=== PATIENT | female | born 1970 | race African-American/Black ===

== ENCOUNTER 2021-08-27 01:58 | Inpatient (IN) | payer OTHER, MEDICAID ==
[~2021-08-27] VITALS: Ht 175.3 cm; Wt 121.7 kg
[2021-08-27] VITALS (33 sets, daily range): BP systolic 107–164; BP diastolic 50–89
[2021-08-27] MEDS ORDERED: MORPHINE SULFATE 4 MG/ML CPJ (NOT FOR IM USE) IV STA (02:30)
[2021-08-27] MEDS ORDERED: LABETALOL HCL VIAL 20 MG/4 ML VIAL IV ONE (02:30)
[2021-08-27] MEDS ORDERED: ONDANSETRON HCL 4MG/2ML INJ IV STA (02:30)
[2021-08-27 03:08] LABS: BASOPHILS % 0.8 % (0.0-2.0); EOSINOPHILS % 0.9 % (0.0-5.0); HEMATOCRIT. 33.8 % (36.0-48.0); HEMOGLOBIN. 10.9 g/dL (12.0-16.0); LYMPHOCYTES % 28.5 % (20.0-50.0); MEAN CORPUSCULAR HEMOGLOBIN 31.8 pg (28.0-32.0); MEAN CORPUSCULAR VOLUME 98.6 fL (81.0-99.0); MEAN PLATELET VOLUME 9.7 fl (7.4-10.4); MONOCYTES % 7.5 % (2.0-8.0); NEUTROPHILS % 62.3 % (40.0-76.0); PLATELET 255 x1000/uL (130-400); RED BLOOD CELL COUNT 3.43 mill/uL (4.2-5.4); RED CELL DISTRIBUTION WIDTH 17.8 % (11.6-14.6)
[2021-08-27 03:18] LABS: BG BASE EXCESS -9.3 mmol/L (-2.0-2.0); BG CARBOXYHEMOGLOBIN 0.3 % (0.5-1.5); BG DEOXYHEMOGLOBIN 8.3 % (0.0-5.0); BG FRACTION INSPIRED OXYGEN 100; BG HCO3 ACT 18.5 mmol/L (22.0-26.0); BG METHEMOGLOBIN 0.3 % (0.0-1.5); BG OXYGEN SATURATION 91.6 % (92.0-98.5); BG OXYHEMOGLOBIN 91.1 % (94.0-97.0); BG PCO2 47.9 mmHg (35.0-45.0); BG PH 7.204 (7.350-7.450); BG PO2 76.3 mmHg (75.0-100.0); BG SAMPLE SITE RIGHT RADIAL; BG TOTAL HEMOGLOBIN 11.2 g/dL (12.0-18.0); BG VENT MODE VENT - AC
[2021-08-27] MEDS ORDERED: VANCOMYCIN 1G PREMIX 200 ML IV ONE (03:30)
[2021-08-27] MEDS ORDERED: PIPERACILLIN/TAZ 3.375G PREMIX 50 ML IV ONE (03:30)
[2021-08-27] MEDS ORDERED: MIDAZOLAM HCL 50 MG in DEXTROSE 5% WATER 40 ML IV ONE (03:45)
[2021-08-27] MEDS ORDERED: PROPOFOL 10MG/ML 100ML 100 ML IV ONE (03:45)
[2021-08-27 03:54] LABS: CHLORIDE 105 mEq/L (98-107)
[2021-08-27] MEDS ORDERED: MIDAZOLAM HCL 100 MG in SODIUM CHLORIDE 0.9% 100 ML IV PRN (04:00)
[2021-08-27] MEDS: MIDAZOLAM HCL 100 MG in SODIUM CHLORIDE 0.9% 100 ML IV NR ×2 (04:45→12:39)
[2021-08-27] MEDS ORDERED: VANCOMYCIN 1G PREMIX 200 ML IV NR (05:30)
[2021-08-27] MEDS ORDERED: VANCOMYCIN 1,000 MG in DEXT 5% WATER 250 ML IV NR (05:30)
[2021-08-27] MEDS ORDERED: IPRATROPIUM/ALBUTEROL 0.5-3(2.5)MG/3ML NEB NEB PRN (07:00)
[2021-08-27] MEDS ORDERED: MAGNESIUM/ALUMINUM HYDROXIDE/SIMETHICONE 30ML UDC PO PRN (07:00)
[2021-08-27] MEDS ORDERED: DOCUSATE SODIUM 100MG CAPSULE PO PRN (07:00)
[2021-08-27] MEDS ORDERED: GUAIFENESIN 200MG/10ML SUGAR FREE UDC PO PRN (07:00)
[2021-08-27] MEDS ORDERED: ONDANSETRON HCL 4MG/2ML INJ IV PRN (07:00)
[2021-08-27] MEDS ORDERED: PIPERACILLIN/TAZ 3.375G PREMIX 50 ML IV SCH (07:00)
[2021-08-27] MEDS ORDERED: ACETAMINOPHEN 325MG TABLET PO PRN (07:00)
[2021-08-27] MEDS ORDERED: NOREPINEPHRINE 8 MG in DEXT 5% WATER 242 ML IV PRN (07:00)
[2021-08-27] MEDS ORDERED: NITROGLYCERIN 0.4MG TABLET SL SL PRN (07:00)
[2021-08-27] MEDS ORDERED: DEXTROSE 50% WATER 50ML SYRINGE IV PRN (07:15)
[2021-08-27] MEDS ORDERED: NOREPINEPHRINE 8MG/250ML PMX 250 ML IV PRN (07:30)
[2021-08-27] MEDS: BLOOD SUGAR DIAGNOSTIC STRIP TEST SCH ×3 (09:00→20:43)
[2021-08-27] MEDS ORDERED: ENOXAPARIN 30MG/0.3ML SYR SUBCUT SCH (09:15)
[2021-08-27 09:40] LABS: T4 FREE 1.12 ng/dL (0.76-1.46)
[2021-08-27] MEDS ORDERED: FENTANYL 2500MCG/250ML PMX 250 ML IV PRN (09:45)
[2021-08-27] MEDS: IPRATROPIUM/ALBUTEROL 0.5-3(2.5)MG/3ML NEB NEB SCH ×2 (12:22→21:08)
[2021-08-27 12:35] LABS: HEPATITIS B SURFACE ANTIGEN NEGATIVE
[2021-08-27] MEDS: PROPOFOL 10MG/ML 100ML 100 ML IV PRN ×2 (12:39→15:42)
[2021-08-27] MEDS ORDERED: ENOXAPARIN 40MG/0.4ML SYR SUBCUT SCH (15:00)
[2021-08-27] MEDS ORDERED: TRAM50TA3 PO (16:12)
[2021-08-27] MEDS ORDERED: MONT10TA32 PO (16:14)
[2021-08-27] MEDS ORDERED: CYCL10TA7 PO (16:17)
[2021-08-27] MEDS ORDERED: GABA-529 PO (16:17)
[2021-08-27] MEDS ORDERED: PRED5TAB PO (16:17)
[2021-08-27] MEDS ORDERED: SERT25TA74 PO (16:17)
[2021-08-27] MEDS ORDERED: CARV12.545 PO (16:18)
[2021-08-27] MEDS ORDERED: OMEP20TA2 PO (16:20)
[2021-08-27] MEDS ORDERED: ATOR-2 PO (16:21)
[2021-08-27] MEDS ORDERED: REN800 PO (16:22)
[2021-08-27] MEDS ORDERED: FURO40TA5 PO (16:22)
[2021-08-27] MEDS ORDERED: MECL-217 PO (16:23)
[2021-08-27] MEDS ORDERED: LOSA100T32 PO (16:24)
[2021-08-27] MEDS ORDERED: AMLO10TA4 PO (16:26)
[2021-08-27] MEDS: ASPIRIN 325MG EC TABLET PO SCH (16:40)
[2021-08-27] MEDS: PANTOPRAZOLE SODIUM 40 MG/VIAL IV SCH (16:40)
[2021-08-27] MEDS: INSULIN LISPRO 100 UNITS/ML SUBCUT SCH ×3 (16:42→20:55)
[2021-08-27] MEDS: ENOXAPARIN 120MG/0.8ML SYR SUBCUT SCH (16:49)
[2021-08-27 17:26] LABS: FOLIC ACID (FOLATE) SERUM 16.5 ng/mL (>5.38)
[2021-08-27] MEDS: FENTANYL 2500MCG/250ML PMX 250 ML IV PRN (17:54)
[2021-08-27] MEDS ORDERED: NOREPINEPHRINE 8 MG in DEXT 5% WATER 250 ML IV PRN (19:30)
[2021-08-27 20:27] LABS: INR 1.2; PROTHROMBIN TIME 12.3 sec (9.6-11.0)
[2021-08-27 20:35] LABS: CREATINE KINASE MB FRACTION 2.9 ng/mL (0.5-3.6)
[2021-08-27] MEDS ORDERED: PIPERACILLIN/TAZOBACTAM 3.375 G in DEXTROSE 5% WATER 50 ML IV SCH (21:00)
[2021-08-27] MEDS: PIPERACILLIN/TAZOBACTAM 3.375 G in DEXTROSE 5% WATER 50 ML IV SCH (22:12)
[2021-08-27 22:44] LABS: *AMPHETAMINES SCREEN URINE NEGATIVE (NEGATIVE); *BARBITURATES SCREEN URINE NEGATIVE (NEGATIVE); *COCAINE SCREEN URINE NEGATIVE (NEGATIVE); CANNABINOID URINE SCREEN NEGATIVE (NEGATIVE); METHADONE URINE SCREEN NEGATIVE (NEGATIVE); PHENCYCLIDINE URINE SCREEN NEGATIVE (NEGATIVE)
[2021-08-27 23:02] LABS: *BENZODIAZEPINES SCREEN URINE PRESUMTIVE POSITIVE (NEGATIVE); OPIATES URINE SCREEN PRESUMTIVE POSITIVE (NEGATIVE)
[2021-08-28] VITALS (62 sets, daily range): BP systolic 95–152; BP diastolic 46–110
[2021-08-28 00:16] LABS: CREATINE KINASE MB FRACTION 2.5 ng/mL (0.5-3.6)
[2021-08-28] MEDS: IPRATROPIUM/ALBUTEROL 0.5-3(2.5)MG/3ML NEB NEB SCH ×4 (00:58→20:22)
[2021-08-28] MEDS: MIDAZOLAM HCL 100 MG in SODIUM CHLORIDE 0.9% 100 ML IV NR (01:50)
[2021-08-28] MEDS: ACETAMINOPHEN 325MG TABLET PO PRN ×2 (04:28→20:21)
[2021-08-28] MEDS: BLOOD SUGAR DIAGNOSTIC STRIP TEST SCH ×3 (06:08→17:04)
[2021-08-28] MEDS: INSULIN LISPRO 100 UNITS/ML SUBCUT SCH ×3 (06:09→17:36)
[2021-08-28 06:28] LABS: BASOPHILS % 0.4 % (0.0-2.0); EOSINOPHILS % 3.5 % (0.0-5.0); HEMATOCRIT. 26.4 % (36.0-48.0); HEMOGLOBIN. 8.7 g/dL (12.0-16.0); LYMPHOCYTES % 11.4 % (20.0-50.0); MEAN CORPUSCULAR HEMOGLOBIN 32.6 pg (28.0-32.0); MEAN CORPUSCULAR VOLUME 99.3 fL (81.0-99.0); MEAN PLATELET VOLUME 10.2 fl (7.4-10.4); MONOCYTES % 4.5 % (2.0-8.0); NEUTROPHILS % 80.2 % (40.0-76.0); PLATELET 98 x1000/uL (130-400); RED BLOOD CELL COUNT 2.66 mill/uL (4.2-5.4); RED CELL DISTRIBUTION WIDTH 17.8 % (11.6-14.6)
[2021-08-28 06:31] LABS: CHLORIDE 110 mEq/L (98-107)
[2021-08-28 06:43] LABS: PHOSPHORUS 2.7 mg/dL (2.5-4.9)
[2021-08-28 08:20] LABS: BG BASE EXCESS 0.5 mmol/L (-2.0-2.0); BG CARBOXYHEMOGLOBIN 0.3 % (0.5-1.5); BG DEOXYHEMOGLOBIN 4.4 % (0.0-5.0); BG METHEMOGLOBIN 0.2 % (0.0-1.5); BG OXYGEN SATURATION 95.6 % (92.0-98.5); BG OXYHEMOGLOBIN 95.1 % (94.0-97.0); BG PCO2 39.5 mmHg (35.0-45.0); BG PH 7.419 (7.350-7.450); BG PO2 81.2 mmHg (75.0-100.0); BG SAMPLE SITE RIGHT RADIAL; BG VENT MODE VENT - AC
[2021-08-28] MEDS ORDERED: MIDAZOLAM 100MG/100ML PMX 100 ML IV PRN (10:00)
[2021-08-28] MEDS: ASPIRIN 325MG EC TABLET PO SCH (10:47)
[2021-08-28] MEDS: PANTOPRAZOLE SODIUM 40 MG/VIAL IV SCH (10:47)
[2021-08-28] MEDS: PIPERACILLIN/TAZOBACTAM 3.375 G in DEXTROSE 5% WATER 50 ML IV SCH ×2 (10:47→20:20)
[2021-08-28] MEDS: MIDAZOLAM HCL 100 MG in SODIUM CHLORIDE 0.9% 80 ML IV PRN (13:21)
[2021-08-28] MEDS: FENTANYL 2500MCG/250ML PMX 250 ML IV PRN (16:27)
[2021-08-28] MEDS: ENOXAPARIN 120MG/0.8ML SYR SUBCUT SCH (16:44)
[2021-08-28] MEDS ORDERED: VANCOMYCIN 1250MG in DEXTROSE 5% WATER 250ML IV NR (18:00)
[2021-08-28] MEDS ORDERED: IOHEXOL-350 100 ML BOTTLE ONE (19:14)
[2021-08-29] VITALS (34 sets, daily range): BP systolic 104–154; BP diastolic 57–74
[2021-08-29] MEDS: IPRATROPIUM/ALBUTEROL 0.5-3(2.5)MG/3ML NEB NEB SCH ×4 (00:22→20:35)
[2021-08-29] MEDS: ACETAMINOPHEN 325MG TABLET PO PRN ×2 (04:01→21:09)
[2021-08-29] MEDS: FENTANYL 2500MCG/250ML PMX 250 ML IV PRN (05:25)
[2021-08-29] MEDS: BLOOD SUGAR DIAGNOSTIC STRIP TEST SCH ×4 (05:33→18:53)
[2021-08-29] MEDS: INSULIN LISPRO 100 UNITS/ML SUBCUT SCH ×4 (05:34→18:00)
[2021-08-29 06:27] LABS: BASOPHILS % 0.4 % (0.0-2.0); EOSINOPHILS % 0.4 % (0.0-5.0); HEMOGLOBIN. 8.5 g/dL (12.0-16.0); LYMPHOCYTES % 16.9 % (20.0-50.0); MEAN CORPUSCULAR HEMOGLOBIN 32.4 pg (28.0-32.0); MEAN CORPUSCULAR VOLUME 99.4 fL (81.0-99.0); MEAN PLATELET VOLUME 10.2 fl (7.4-10.4); MONOCYTES % 9.4 % (2.0-8.0); NEUTROPHILS % 72.9 % (40.0-76.0); PLATELET 150 x1000/uL (130-400); RED BLOOD CELL COUNT 2.62 mill/uL (4.2-5.4); RED CELL DISTRIBUTION WIDTH 17.6 % (11.6-14.6)
[2021-08-29] MEDS: ASPIRIN 325MG EC TABLET PO SCH (08:56)
[2021-08-29] MEDS: PANTOPRAZOLE SODIUM 40 MG/VIAL IV SCH (08:56)
[2021-08-29] MEDS: PIPERACILLIN/TAZOBACTAM 3.375 G in DEXTROSE 5% WATER 50 ML IV SCH ×2 (08:57→21:09)
[2021-08-29 09:21] LABS: BG BASE EXCESS -2.2 mmol/L (-2.0-2.0); BG CARBOXYHEMOGLOBIN 0.2 % (0.5-1.5); BG DEOXYHEMOGLOBIN 4.7 % (0.0-5.0); BG FRACTION INSPIRED OXYGEN 60; BG HCO3 ACT 22.3 mmol/L (22.0-26.0); BG METHEMOGLOBIN 0.3 % (0.0-1.5); BG OXYGEN SATURATION 95.3 % (92.0-98.5); BG OXYHEMOGLOBIN 94.8 % (94.0-97.0); BG PCO2 36.9 mmHg (35.0-45.0); BG PO2 80.6 mmHg (75.0-100.0); BG SAMPLE SITE RIGHT RADIAL; BG TOTAL HEMOGLOBIN 8.7 g/dL (12.0-18.0); BG VENT MODE VENT - AC
[2021-08-29] MEDS: ENOXAPARIN 120MG/0.8ML SYR SUBCUT SCH (16:59)
[2021-08-30] VITALS (79 sets, daily range): BP systolic 96–166; BP diastolic 46–94
[2021-08-30] MEDS: IPRATROPIUM/ALBUTEROL 0.5-3(2.5)MG/3ML NEB NEB SCH ×4 (00:22→20:43)
[2021-08-30] MEDS: BLOOD SUGAR DIAGNOSTIC STRIP TEST SCH ×4 (00:30→17:28)
[2021-08-30] MEDS: INSULIN LISPRO 100 UNITS/ML SUBCUT SCH ×4 (00:30→17:28)
[2021-08-30] MEDS: MIDAZOLAM HCL 100 MG in SODIUM CHLORIDE 0.9% 80 ML IV PRN ×3 (02:42→21:48)
[2021-08-30 05:20] LABS: BASOPHILS % 0.3 % (0.0-2.0); EOSINOPHILS % 1.6 % (0.0-5.0); HEMATOCRIT. 23.9 % (36.0-48.0); HEMOGLOBIN. 7.9 g/dL (12.0-16.0); LYMPHOCYTES % 8.8 % (20.0-50.0); MEAN CORPUSCULAR HEMOGLOBIN 32.4 pg (28.0-32.0); MEAN CORPUSCULAR VOLUME 97.7 fL (81.0-99.0); MEAN PLATELET VOLUME 10.1 fl (7.4-10.4); MONOCYTES % 8.3 % (2.0-8.0); PLATELET 147 x1000/uL (130-400); RED BLOOD CELL COUNT 2.44 mill/uL (4.2-5.4); RED CELL DISTRIBUTION WIDTH 17.2 % (11.6-14.6)
[2021-08-30] MEDS: ACETAMINOPHEN 325MG TABLET PO PRN ×3 (05:32→18:10)
[2021-08-30 07:34] LABS: BG BASE EXCESS -0.1 mmol/L (-2.0-2.0); BG CARBOXYHEMOGLOBIN 0.4 % (0.5-1.5); BG DEOXYHEMOGLOBIN 2.7 % (0.0-5.0); BG HCO3 ACT 25.4 mmol/L (22.0-26.0); BG METHEMOGLOBIN 0.1 % (0.0-1.5); BG OXYGEN SATURATION 97.3 % (92.0-98.5); BG OXYHEMOGLOBIN 96.8 % (94.0-97.0); BG PCO2 46.2 mmHg (35.0-45.0); BG PH 7.358 (7.350-7.450); BG PO2 103.4 mmHg (75.0-100.0); BG SAMPLE SITE RIGHT BRACHIAL; BG VENT MODE VENT - AC
[2021-08-30] MEDS: ASPIRIN 325MG EC TABLET PO SCH (08:42)
[2021-08-30] MEDS: PANTOPRAZOLE SODIUM 40 MG/VIAL IV SCH (08:42)
[2021-08-30] MEDS: FENTANYL 2500MCG/250ML PMX 250 ML IV PRN (08:44)
[2021-08-30] MEDS: PIPERACILLIN/TAZOBACTAM 3.375 G in DEXTROSE 5% WATER 50 ML IV SCH ×2 (10:45→21:20)
[2021-08-30] MEDS: ENOXAPARIN 120MG/0.8ML SYR SUBCUT SCH (15:17)
[2021-08-30] MEDS ORDERED: VANCOMYCIN 750 MG in DEXT 5% WATER 250 ML IV NR (21:00)
[2021-08-30] MEDS ORDERED: DOXYCYCLINE HYCLATE 100MG CAPSULE PO NR (21:00)
[2021-08-31] VITALS (96 sets, daily range): BP systolic 96–164; BP diastolic 41–92
[2021-08-31] MEDS: BLOOD SUGAR DIAGNOSTIC STRIP TEST SCH ×4 (00:01→17:57)
[2021-08-31] MEDS: INSULIN LISPRO 100 UNITS/ML SUBCUT SCH ×4 (00:05→18:00)
[2021-08-31] MEDS: IPRATROPIUM/ALBUTEROL 0.5-3(2.5)MG/3ML NEB NEB SCH ×4 (01:05→21:01)
[2021-08-31] MEDS: ACETAMINOPHEN 325MG TABLET PO PRN ×3 (01:06→20:50)
[2021-08-31] MEDS: FENTANYL 2500MCG/250ML PMX 250 ML IV PRN (05:35)
[2021-08-31 05:39] LABS: BASOPHILS % 0.5 % (0.0-2.0); EOSINOPHILS % 1.7 % (0.0-5.0); HEMATOCRIT. 21.6 % (36.0-48.0); HEMOGLOBIN. 7.2 g/dL (12.0-16.0); LYMPHOCYTES % 13.3 % (20.0-50.0); MEAN CORPUSCULAR HEMOGLOBIN 32.3 pg (28.0-32.0); MEAN CORPUSCULAR VOLUME 96.2 fL (81.0-99.0); MONOCYTES % 10.2 % (2.0-8.0); NEUTROPHILS % 74.3 % (40.0-76.0); RED BLOOD CELL COUNT 2.24 mill/uL (4.2-5.4); RED CELL DISTRIBUTION WIDTH 16.6 % (11.6-14.6)
[2021-08-31] MEDS: PIPERACILLIN/TAZOBACTAM 3.375 G in DEXTROSE 5% WATER 50 ML IV SCH (08:28)
[2021-08-31] MEDS: PANTOPRAZOLE SODIUM 40 MG/VIAL IV SCH (08:32)
[2021-08-31] MEDS: ASPIRIN 325MG EC TABLET PO SCH (08:34)
[2021-08-31] MEDS: DOXYCYCLINE HYCLATE 100MG CAPSULE PO SCH ×2 (08:34→20:52)
[2021-08-31 09:06] LABS: BG BASE EXCESS 0.9 mmol/L (-2.0-2.0); BG CARBOXYHEMOGLOBIN 0.3 % (0.5-1.5); BG DEOXYHEMOGLOBIN 3.8 % (0.0-5.0); BG FRACTION INSPIRED OXYGEN 50; BG HCO3 ACT 25.6 mmol/L (22.0-26.0); BG METHEMOGLOBIN 0.2 % (0.0-1.5); BG OXYGEN SATURATION 96.2 % (92.0-98.5); BG OXYHEMOGLOBIN 95.7 % (94.0-97.0); BG PCO2 41.2 mmHg (35.0-45.0); BG PH 7.411 (7.350-7.450); BG PO2 89.8 mmHg (75.0-100.0); BG SAMPLE SITE RIGHT RADIAL; BG TOTAL HEMOGLOBIN 7.9 g/dL (12.0-18.0); BG VENT MODE VENT - AC
[2021-08-31] MEDS: ENOXAPARIN 120MG/0.8ML SYR SUBCUT SCH (15:53)
[2021-08-31] MEDS: CEFEPIME 1,000 MG in DEXTROSE 5% WATER 50 ML IV SCH (17:32)
[2021-08-31] MEDS: METRONIDAZOLE 250MG TABLET PO SCH ×2 (17:32→23:00)
[2021-08-31] MEDS ORDERED: EPOETIN ALFA 10000UNITS/ML VIAL SUBCUT SCH (21:00)
[2021-09-01] VITALS (79 sets, daily range): BP systolic 110–173; BP diastolic 55–91
[2021-09-01] MEDS: BLOOD SUGAR DIAGNOSTIC STRIP TEST SCH ×5 (00:46→23:27)
[2021-09-01] MEDS: INSULIN LISPRO 100 UNITS/ML SUBCUT SCH ×5 (00:51→23:30)
[2021-09-01] MEDS: IPRATROPIUM/ALBUTEROL 0.5-3(2.5)MG/3ML NEB NEB SCH ×4 (00:57→20:46)
[2021-09-01] MEDS: FENTANYL 2500MCG/250ML PMX 250 ML IV PRN (02:56)
[2021-09-01] MEDS: ACETAMINOPHEN 325MG TABLET PO PRN (04:53)
[2021-09-01] MEDS: METRONIDAZOLE 250MG TABLET PO SCH ×3 (05:11→23:24)
[2021-09-01 06:15] LABS: BASOPHILS % 0.5 % (0.0-2.0); EOSINOPHILS % 2.9 % (0.0-5.0); HEMATOCRIT. 28.5 % (36.0-48.0); HEMOGLOBIN. 9.2 g/dL (12.0-16.0); LYMPHOCYTES % 12.3 % (20.0-50.0); MEAN CORPUSCULAR HEMOGLOBIN 31.9 pg (28.0-32.0); MEAN CORPUSCULAR VOLUME 99.3 fL (81.0-99.0); MEAN PLATELET VOLUME 10.3 fl (7.4-10.4); MONOCYTES % 8.9 % (2.0-8.0); NEUTROPHILS % 75.4 % (40.0-76.0); PLATELET 183 x1000/uL (130-400); RED BLOOD CELL COUNT 2.87 mill/uL (4.2-5.4); RED CELL DISTRIBUTION WIDTH 17.9 % (11.6-14.6)
[2021-09-01] MEDS: ACETAMINOPHEN 650MG/20.3ML UDC PO PRN ×3 (07:44→20:44)
[2021-09-01] MEDS: MIDAZOLAM HCL 100 MG in SODIUM CHLORIDE 0.9% 80 ML IV PRN (08:04)
[2021-09-01] MEDS: PANTOPRAZOLE SODIUM 40 MG/VIAL IV SCH (10:41)
[2021-09-01] MEDS: ASPIRIN 325MG EC TABLET PO SCH (10:41)
[2021-09-01] MEDS: DOXYCYCLINE HYCLATE 100MG CAPSULE PO SCH ×2 (10:42→20:44)
[2021-09-01] MEDS: CLONIDINE 0.1MG TABLET PO PRN ×3 (10:47→20:44)
[2021-09-01] MEDS ORDERED: FLUMAZENIL 0.1 MG/ML 5ML VIAL IV NR (12:00)
[2021-09-01 12:32] LABS: BG BASE EXCESS 4.7 mmol/L (-2.0-2.0); BG CARBOXYHEMOGLOBIN 0.1 % (0.5-1.5); BG FRACTION INSPIRED OXYGEN 50; BG HCO3 ACT 29.6 mmol/L (22.0-26.0); BG METHEMOGLOBIN 0.3 % (0.0-1.5); BG OXYHEMOGLOBIN 94.6 % (94.0-97.0); BG PCO2 45.6 mmHg (35.0-45.0); BG SAMPLE SITE RIGHT RADIAL; BG TOTAL HEMOGLOBIN 8.5 g/dL (12.0-18.0); BG VENT MODE VENT - CPAP
[2021-09-01] MEDS ORDERED: MORPHINE SULFATE 2 MG/ML CPJ (NOT FOR IM USE) IV NR (15:00)
[2021-09-01] MEDS: CEFEPIME 1,000 MG in DEXTROSE 5% WATER 50 ML IV SCH (17:24)
[2021-09-01] MEDS: ENOXAPARIN 120MG/0.8ML SYR SUBCUT SCH (17:25)
[2021-09-01] MEDS ORDERED: DOCUSATE SODIUM SUGAR FREE 100MG/10ML UDC PO PRN (20:45)
[2021-09-02] VITALS (66 sets, daily range): BP systolic 111–187; BP diastolic 55–120
[2021-09-02] MEDS: IPRATROPIUM/ALBUTEROL 0.5-3(2.5)MG/3ML NEB NEB SCH ×4 (02:11→20:18)
[2021-09-02] MEDS: METRONIDAZOLE 250MG TABLET PO SCH ×3 (05:17→21:11)
[2021-09-02] MEDS: INSULIN LISPRO 100 UNITS/ML SUBCUT SCH ×3 (05:18→17:36)
[2021-09-02] MEDS: CLONIDINE 0.1MG TABLET PO PRN ×2 (05:18→10:49)
[2021-09-02] MEDS: BLOOD SUGAR DIAGNOSTIC STRIP TEST SCH ×3 (05:19→17:33)
[2021-09-02 05:30] LABS: BASOPHILS % 0.5 % (0.0-2.0); EOSINOPHILS % 1.8 % (0.0-5.0); HEMATOCRIT. 24.3 % (36.0-48.0); LYMPHOCYTES % 7.5 % (20.0-50.0); MEAN CORPUSCULAR HEMOGLOBIN 31.6 pg (28.0-32.0); MEAN CORPUSCULAR VOLUME 95.9 fL (81.0-99.0); MEAN PLATELET VOLUME 10.4 fl (7.4-10.4); MONOCYTES % 8.3 % (2.0-8.0); NEUTROPHILS % 81.9 % (40.0-76.0); PLATELET 200 x1000/uL (130-400); RED BLOOD CELL COUNT 2.54 mill/uL (4.2-5.4); RED CELL DISTRIBUTION WIDTH 17.2 % (11.6-14.6)
[2021-09-02 06:00] LABS: CHLORIDE 111 mEq/L (98-107); CREATINE KINASE 772 IU/L (26-192); PHOSPHORUS 1.8 mg/dL (2.5-4.9)
[2021-09-02] MEDS: ACETAMINOPHEN 650MG/20.3ML UDC PO PRN (07:31)
[2021-09-02] MEDS: PANTOPRAZOLE SODIUM 40 MG/VIAL IV SCH (09:07)
[2021-09-02] MEDS: ASPIRIN 325MG EC TABLET PO SCH (09:07)
[2021-09-02] MEDS: DOXYCYCLINE HYCLATE 100MG CAPSULE PO SCH ×2 (09:07→21:11)
[2021-09-02] MEDS ORDERED: NA PHOS,M-B/NA PHOS,DI-BA ENEMA 118ML PR ONE (10:15)
[2021-09-02] MEDS ORDERED: LACTULOSE 20G/30ML UDC PO SCH (10:15)
[2021-09-02] MEDS ORDERED: FLUMAZENIL 0.1 MG/ML 5ML VIAL IV ONE (10:15)
[2021-09-02] MEDS ORDERED: SODIUM PHOS,M-BASIC-D-BASIC 15 MM in DEXT 5% WATER 245 ML IV NR (11:00)
[2021-09-02] MEDS: AMLODIPINE 10MG TABLET PO SCH ×2 (11:50→17:12)
[2021-09-02] MEDS: HYDRALAZINE HCL 25MG TABLET PO SCH ×2 (13:51→21:11)
[2021-09-02] MEDS: MORPHINE SULFATE 2 MG/ML CPJ (NOT FOR IM USE) IV PRN (14:24)
[2021-09-02] MEDS: ENOXAPARIN 120MG/0.8ML SYR SUBCUT SCH (15:38)
[2021-09-02] MEDS: CEFEPIME 1,000 MG in DEXTROSE 5% WATER 50 ML IV SCH (17:12)
[2021-09-02 17:21] LABS: BG BASE EXCESS 1.8 mmol/L (-2.0-2.0); BG CARBOXYHEMOGLOBIN 0.5 % (0.5-1.5); BG FRACTION INSPIRED OXYGEN 40; BG HCO3 ACT 26.1 mmol/L (22.0-26.0); BG METHEMOGLOBIN 0.7 % (0.0-1.5); BG OXYGEN SATURATION 92.9 % (92.0-98.5); BG OXYHEMOGLOBIN 91.8 % (94.0-97.0); BG PCO2 39.4 mmHg (35.0-45.0); BG PH 7.439 (7.350-7.450); BG PO2 69.2 mmHg (75.0-100.0); BG TOTAL HEMOGLOBIN 7.3 g/dL (12.0-18.0); BG VENT MODE VENT - AC
[2021-09-02] MEDS ORDERED: AMLODIPINE 5MG TABLET PO SCH (18:00)
[2021-09-02] MEDS: ACETAMINOPHEN 325MG TABLET PO PRN (21:13)
[2021-09-02] MEDS ORDERED: INSULIN GLARGINE 100 UNITS/ML SUBCUT SCH (22:00)
[2021-09-03] VITALS (50 sets, daily range): BP systolic 106–176; BP diastolic 58–106
[2021-09-03] MEDS: BLOOD SUGAR DIAGNOSTIC STRIP TEST SCH ×4 (00:32→17:43)
[2021-09-03] MEDS: INSULIN LISPRO 100 UNITS/ML SUBCUT SCH ×4 (00:43→17:47)
[2021-09-03] MEDS: MORPHINE SULFATE 2 MG/ML CPJ (NOT FOR IM USE) IV PRN ×2 (00:44→08:42)
[2021-09-03] MEDS: IPRATROPIUM/ALBUTEROL 0.5-3(2.5)MG/3ML NEB NEB SCH ×4 (02:48→20:20)
[2021-09-03] MEDS: CLONIDINE 0.1MG TABLET PO PRN ×3 (04:08→16:39)
[2021-09-03 05:41] LABS: BASOPHILS % 0.4 % (0.0-2.0); EOSINOPHILS % 2.3 % (0.0-5.0); HEMATOCRIT. 24.9 % (36.0-48.0); HEMOGLOBIN. 8.1 g/dL (12.0-16.0); LYMPHOCYTES % 11.7 % (20.0-50.0); MEAN CORPUSCULAR HEMOGLOBIN 31.4 pg (28.0-32.0); MEAN CORPUSCULAR VOLUME 96.1 fL (81.0-99.0); MEAN PLATELET VOLUME 10.6 fl (7.4-10.4); MONOCYTES % 9.3 % (2.0-8.0); NEUTROPHILS % 76.3 % (40.0-76.0); PLATELET 241 x1000/uL (130-400); RED CELL DISTRIBUTION WIDTH 17.4 % (11.6-14.6)
[2021-09-03] MEDS: METRONIDAZOLE 250MG TABLET PO SCH ×2 (05:45→14:57)
[2021-09-03] MEDS: AMLODIPINE 10MG TABLET PO SCH ×2 (05:45→17:46)
[2021-09-03] MEDS: HYDRALAZINE HCL 25MG TABLET PO SCH ×2 (05:45→14:57)
[2021-09-03] MEDS ORDERED: POTASSIUM CHLORIDE 20MEQ/PACKET PO NR (07:18)
[2021-09-03] MEDS: PANTOPRAZOLE SODIUM 40 MG/VIAL IV SCH (08:15)
[2021-09-03] MEDS: ASPIRIN 325MG EC TABLET PO SCH (08:15)
[2021-09-03] MEDS: DOXYCYCLINE HYCLATE 100MG CAPSULE PO SCH (08:17)
[2021-09-03 08:27] LABS: BG CARBOXYHEMOGLOBIN 0.2 % (0.5-1.5); BG DEOXYHEMOGLOBIN 4.8 % (0.0-5.0); BG FRACTION INSPIRED OXYGEN 40; BG HCO3 ACT 25.9 mmol/L (22.0-26.0); BG METHEMOGLOBIN 1.8 % (0.0-1.5); BG OXYGEN SATURATION 95.1 % (92.0-98.5); BG OXYHEMOGLOBIN 93.2 % (94.0-97.0); BG PCO2 37.4 mmHg (35.0-45.0); BG PH 7.459 (7.350-7.450); BG SAMPLE SITE RIGHT RADIAL; BG TOTAL HEMOGLOBIN 8.3 g/dL (12.0-18.0); BG VENT MODE VENT - AC
[2021-09-03] MEDS ORDERED: VANCOMYCIN 1250MG in DEXTROSE 5% WATER 250ML IV NR (14:00)
[2021-09-03] MEDS: ENOXAPARIN 120MG/0.8ML SYR SUBCUT SCH (15:46)
[2021-09-03] MEDS: CEFEPIME 1,000 MG in DEXTROSE 5% WATER 50 ML IV SCH (17:46)
[2021-09-03] MEDS ORDERED: INSULIN GLARGINE 100 UNITS/ML SUBCUT SCH (22:00)
== END 2021-09-03 21:15 | disposition short-term general hospital (02) | DRG 870 ==
LOC: ER 02:21 → MICUSO 03:32
PROVIDERS: ADMIT Internal Medicine; ATTEND Internal Medicine
PROC: 5A1955Z Respiratory Ventilation, Greater than 96 Consecutive Hours (ICD-10-PCS; principal; 2021-08-27)
PROC: 0BH17EZ Insertion of Endotracheal Airway into Trachea, Via Natural or Artificial Opening (ICD-10-PCS; 2021-08-27)
PROC: 5A1D70Z Performance of Urinary Filtration, Intermittent, Less than 6 Hours Per Day (ICD-10-PCS; 2021-08-27)
PROC: B546ZZA Ultrasonography of Right Subclavian Vein, Guidance (ICD-10-PCS; 2021-08-27)
PROC: 06HY33Z Insertion of Infusion Device into Lower Vein, Percutaneous Approach (ICD-10-PCS; 2021-08-27)
PROC: B54MZZA Ultrasonography of Right Upper Extremity Veins, Guidance (ICD-10-PCS; 2021-08-28)
PROC: 05HY33Z Insertion of Infusion Device into Upper Vein, Percutaneous Approach (ICD-10-PCS; 2021-08-28)
PROC: 5A1D70Z Performance of Urinary Filtration, Intermittent, Less than 6 Hours Per Day (ICD-10-PCS; 2021-08-28)
PROC: 5A1D70Z Performance of Urinary Filtration, Intermittent, Less than 6 Hours Per Day (ICD-10-PCS; 2021-08-30)
PROC: 5A1D70Z Performance of Urinary Filtration, Intermittent, Less than 6 Hours Per Day (ICD-10-PCS; 2021-09-01)
DX: A41.9 Sepsis, unspecified organism (principal); G92.8 Other toxic encephalopathy; N18.6 End stage renal disease; J18.9 Pneumonia, unspecified organism; J96.01 Acute respiratory failure with hypoxia; I50.33 Acute on chronic diastolic (congestive) heart failure; J96.02 Acute respiratory failure with hypercapnia; I21.4 Non-ST elevation (NSTEMI) myocardial infarction; E44.0 Moderate protein-calorie malnutrition; I13.2 Hypertensive heart and chronic kidney disease with heart failure and with stage 5 chronic kidney disease, or end stage renal disease; M62.82 Rhabdomyolysis; I82.411 Acute embolism and thrombosis of right femoral vein; R65.20 Severe sepsis without septic shock; E11.65 Type 2 diabetes mellitus with hyperglycemia; D63.8 Anemia in other chronic diseases classified elsewhere; E11.22 Type 2 diabetes mellitus with diabetic chronic kidney disease; E66.01 Morbid (severe) obesity due to excess calories; D69.6 Thrombocytopenia, unspecified; I49.3 Ventricular premature depolarization; R94.31 Abnormal electrocardiogram [ECG] [EKG]; E88.09 Other disorders of plasma-protein metabolism, not elsewhere classified; J45.909 Unspecified asthma, uncomplicated; Z20.822 Contact with and (suspected) exposure to COVID-19; Z79.4 Long term (current) use of insulin; Z99.2 Dependence on renal dialysis; Z68.39 Body mass index [BMI] 39.0-39.9, adult
CPT/HCPCS: 36415; 36600; 71045; 71275; 76937; 80048; 80053; 80061; 80076; 80202; 80305; 82375; 82550; 82553; 82607; 82746; 82805; 82962; 83036; 83540; 83550; 83605; 83735; 83880; 84100; 84145; 84439; 84443; 84484; 85025; 86038; 86705; 86709; 86803; 86850; 86900; 87070; 87340; 87426; 87804; 93005; 93306; 93970; 94002; 94003; 94640; 99291; C1725; C9113; J0692; J0885; J1650; J1815; J2250; J2270; J2405; J2543; J2704; J3010; J3370; J3490; J7050; J7060; Q9967

== ENCOUNTER 2022-01-31 01:49 | Inpatient (IN) | payer OTHER, MEDICAID ==
[~2022-01-31] VITALS: Ht 167.6 cm; Wt 98.9 kg
[~2022-01-31 01:49] MED LIST: AMLO10TA4 PO; ATOR-2 PO; CARV12.545 PO; CYCL10TA21 PO; FURO40TA5 PO; GABA-529 PO; LOSA100T32 PO; MECL-217 PO; MONT-39 PO; OMEP20TA23 PO; PRED5TAB PO; REN800 PO; SERT25TA74 PO; TRAM50TA3 PO
[2022-01-31] MEDS ORDERED: FUROSEMIDE 40MG/4ML VIAL IV ONE (02:00)
[2022-01-31] MEDS ORDERED: NITROGLYCERIN OINT 1GM/INCH UDPKT TD ONE (02:00)
[2022-01-31 02:44] LABS: CHLORIDE 107 mEq/L (98-107)
[2022-01-31 02:54] LABS: ETHANOL BLOOD < 10 mg/dL
[2022-01-31 03:20] LABS: BASOPHILS % 0.8 % (0.0-2.0); EOSINOPHILS % 1.4 % (0.0-5.0); HEMATOCRIT. 32.5 % (36.0-48.0); HEMOGLOBIN. 10.3 g/dL (12.0-16.0); LYMPHOCYTES % 27.5 % (20.0-50.0); MEAN CORPUSCULAR HEMOGLOBIN 32.3 pg (28.0-32.0); MEAN CORPUSCULAR VOLUME 102.4 fL (81.0-99.0); MEAN PLATELET VOLUME 9.8 fl (7.4-10.4); MONOCYTES % 6.2 % (2.0-8.0); NEUTROPHILS % 64.1 % (40.0-76.0); PLATELET 226 x1000/uL (130-400); RED BLOOD CELL COUNT 3.18 mill/uL (4.2-5.4); RED CELL DISTRIBUTION WIDTH 18.1 % (11.6-14.6)
[2022-01-31 03:52] LABS: *AMPHETAMINES SCREEN URINE NEGATIVE (NEGATIVE); *BARBITURATES SCREEN URINE NEGATIVE (NEGATIVE); *BENZODIAZEPINES SCREEN URINE NEGATIVE (NEGATIVE); *COCAINE SCREEN URINE NEGATIVE (NEGATIVE); CANNABINOID URINE SCREEN NEGATIVE (NEGATIVE); METHADONE URINE SCREEN NEGATIVE (NEGATIVE); OPIATES URINE SCREEN NEGATIVE (NEGATIVE); PHENCYCLIDINE URINE SCREEN NEGATIVE (NEGATIVE)
[2022-01-31] MEDS ORDERED: MORPHINE SULFATE 4 MG/ML CPJ (NOT FOR IM USE) IV ONE (05:15)
[2022-01-31] MEDS ORDERED: ASPIRIN 325MG EC TABLET PO NR (05:30)
[2022-01-31] MEDS ORDERED: DEXTROSE 50% WATER 50ML SYRINGE IV PRN (07:00)
[2022-01-31] MEDS ORDERED: CLONIDINE 0.1MG TABLET PO PRN (07:00)
[2022-01-31] MEDS ORDERED: GUAIFENESIN 200MG/10ML SUGAR FREE UDC PO PRN (07:00)
[2022-01-31] MEDS ORDERED: PIPERACILLIN/TAZ 3.375G PREMIX 50 ML IV SCH ×2 (07:00→08:00)
[2022-01-31] MEDS ORDERED: IPRATROPIUM/ALBUTEROL 0.5-3(2.5)MG/3ML NEB NEB PRN (07:00)
[2022-01-31] MEDS ORDERED: ACETAMINOPHEN 325MG TABLET PO PRN (07:00)
[2022-01-31] MEDS ORDERED: ONDANSETRON HCL 4MG/2ML INJ IV PRN (07:00)
[2022-01-31] MEDS ORDERED: MAGNESIUM/ALUMINUM HYDROXIDE/SIMETHICONE 30ML UDC PO PRN (07:00)
[2022-01-31] MEDS ORDERED: LIDOCAINE HCL/PF 1% 2ML VIAL ONE (08:00)
[2022-01-31] MEDS: ENOXAPARIN 40MG/0.4ML SYR SUBCUT SCH ×2 (08:00→15:07)
[2022-01-31] MEDS: IPRATROPIUM/ALBUTEROL 0.5-3(2.5)MG/3ML NEB HHN SCH ×4 (08:02→20:21)
[2022-01-31] MEDS: INSULIN LISPRO 100 UNITS/ML SUBCUT SCH ×4 (08:20→21:00)
[2022-01-31] MEDS: BLOOD SUGAR DIAGNOSTIC STRIP TEST SCH ×4 (09:00→21:00)
[2022-01-31] MEDS ORDERED: FAMOTIDINE 20MG TABLET PO SCH (09:00)
[2022-01-31] MEDS ORDERED: DOCUSATE SODIUM 100MG CAPSULE PO PRN (09:00)
[2022-01-31] MEDS ORDERED: VANCOMYCIN 1500MG in DEXTROSE 5% WATER 250ML IV NR (10:00)
[2022-01-31] MEDS: GUAIFENESIN/DM 600MG/30MG ER TAB 12HR PO SCH ×2 (12:28→21:00)
[2022-01-31] MEDS: AMLODIPINE 10MG TABLET PO SCH (12:28)
[2022-01-31] MEDS: SEVELAMER CARBONATE 800 MG TABLET PO SCH ×2 (12:29→17:05)
[2022-01-31] MEDS: ASPIRIN 81MG EC TABLET PO SCH (12:30)
[2022-01-31 13:00] VITALS: BP 168/93
[2022-01-31 13:51] LABS: HEPATITIS B SURFACE ANTIGEN NEGATIVE
[2022-01-31] MEDS: CARVEDILOL 3.125 MG TABLET PO SCH (15:06)
[2022-01-31] MEDS: LOSARTAN POTASSIUM 50 MG TABLET PO SCH (15:06)
[2022-01-31] MEDS: INSULIN GLARGINE 100 UNITS/ML SUBCUT SCH (15:11)
[2022-01-31 15:45] VITALS: BP 170/118
[2022-01-31 16:11] VITALS: BP 168/97
[2022-01-31 18:00] VITALS: BP 165/107
[2022-01-31 20:02] VITALS: BP 133/82
[2022-01-31] MEDS ORDERED: ZOLPIDEM TARTRATE 5MG TABLET PO PRN (21:00)
[2022-01-31 22:02] VITALS: BP 144/85
[2022-01-31] MEDS: ACETAMINOPHEN 325MG TABLET PO PRN (22:21)
[2022-01-31] MEDS: PIPERACILLIN/TAZOBACTAM 3.375 G in DEXTROSE 5% WATER 50 ML IV SCH (22:21)
[2022-02-01] VITALS (34 sets, daily range): BP systolic 74–165; BP diastolic 22–147
[2022-02-01] MEDS: IPRATROPIUM/ALBUTEROL 0.5-3(2.5)MG/3ML NEB HHN SCH ×5 (00:28→21:06)
[2022-02-01 05:59] LABS: BASOPHILS % 0.6 % (0.0-2.0); EOSINOPHILS % 1.3 % (0.0-5.0); HEMATOCRIT. 27.6 % (36.0-48.0); HEMOGLOBIN. 9.4 g/dL (12.0-16.0); MEAN CORPUSCULAR HEMOGLOBIN 32.9 pg (28.0-32.0); MEAN PLATELET VOLUME 9.6 fl (7.4-10.4); MONOCYTES % 7.9 % (2.0-8.0); NEUTROPHILS % 69.2 % (40.0-76.0); PLATELET 148 x1000/uL (130-400); RED BLOOD CELL COUNT 2.85 mill/uL (4.2-5.4); RED CELL DISTRIBUTION WIDTH 17.2 % (11.6-14.6)
[2022-02-01] MEDS: BLOOD SUGAR DIAGNOSTIC STRIP TEST SCH ×4 (06:45→21:00)
[2022-02-01] MEDS: CARVEDILOL 3.125 MG TABLET PO SCH ×2 (06:45→17:13)
[2022-02-01] MEDS: SEVELAMER CARBONATE 800 MG TABLET PO SCH ×3 (07:20→17:11)
[2022-02-01] MEDS: INSULIN LISPRO 100 UNITS/ML SUBCUT SCH ×4 (07:20→21:00)
[2022-02-01 08:30] LABS: CHLORIDE 104 mEq/L (98-107)
[2022-02-01 08:45] LABS: PHOSPHORUS 4.5 mg/dL (2.5-4.9)
[2022-02-01] MEDS: LOSARTAN POTASSIUM 50 MG TABLET PO SCH (08:53)
[2022-02-01] MEDS: AMLODIPINE 10MG TABLET PO SCH (08:53)
[2022-02-01] MEDS ORDERED: FAMOTIDINE 20MG TABLET PO SCH (09:00)
[2022-02-01] MEDS: ASPIRIN 81MG EC TABLET PO SCH (09:06)
[2022-02-01] MEDS: GUAIFENESIN/DM 600MG/30MG ER TAB 12HR PO SCH ×2 (09:06→22:26)
[2022-02-01] MEDS: ENOXAPARIN 40MG/0.4ML SYR SUBCUT SCH (09:07)
[2022-02-01] MEDS: ACETAMINOPHEN 325MG TABLET PO PRN ×2 (09:13→16:14)
[2022-02-01] MEDS: PIPERACILLIN/TAZOBACTAM 3.375 G in DEXTROSE 5% WATER 50 ML IV SCH ×2 (10:32→21:00)
[2022-02-01] MEDS: INSULIN GLARGINE 100 UNITS/ML SUBCUT SCH (10:32)
[2022-02-01] MEDS ORDERED: EPOETIN ALFA-EPBX 4,000 UNIT/ML VIAL SUBCUT SCH (21:00)
[2022-02-01] MEDS ORDERED: VANCOMYCIN 500MG PREMIX 100 ML IV SCH (21:00)
[2022-02-01] MEDS ORDERED: EPOETIN ALFA 4000UNITS/ML VIAL SUBCUT SCH (21:00)
[2022-02-02] VITALS: BP 154/80
[2022-02-02] MEDS: IPRATROPIUM/ALBUTEROL 0.5-3(2.5)MG/3ML NEB HHN SCH (00:14)
== END 2022-02-02 01:38 | disposition short-term general hospital (02) | DRG 189 ==
LOC: ER 01:49 → 3WST 05:15 → ENRESERV 11:37
PROVIDERS: ADMIT Internal Medicine; ATTEND Internal Medicine
PROC: 5A09357 Assistance with Respiratory Ventilation, Less than 24 Consecutive Hours, Continuous Positive Airway Pressure (ICD-10-PCS; principal; 2022-01-31)
PROC: 5A1D70Z Performance of Urinary Filtration, Intermittent, Less than 6 Hours Per Day (ICD-10-PCS; 2022-01-31)
DX: J96.00 Acute respiratory failure, unspecified whether with hypoxia or hypercapnia (principal); I50.33 Acute on chronic diastolic (congestive) heart failure; N18.6 End stage renal disease; I13.2 Hypertensive heart and chronic kidney disease with heart failure and with stage 5 chronic kidney disease, or end stage renal disease; E44.1 Mild protein-calorie malnutrition; I16.1 Hypertensive emergency; E87.5 Hyperkalemia; J45.909 Unspecified asthma, uncomplicated; E66.01 Morbid (severe) obesity due to excess calories; R77.8 Other specified abnormalities of plasma proteins; E11.22 Type 2 diabetes mellitus with diabetic chronic kidney disease; E78.00 Pure hypercholesterolemia, unspecified; D63.1 Anemia in chronic kidney disease; Z99.2 Dependence on renal dialysis; Z86.718 Personal history of other venous thrombosis and embolism; Z82.49 Family history of ischemic heart disease and other diseases of the circulatory system; Z83.3 Family history of diabetes mellitus; Z68.35 Body mass index [BMI] 35.0-35.9, adult
CPT/HCPCS: 36415; 71045; 80053; 80202; 80305; 80320; 82607; 82746; 82962; 83036; 83540; 83550; 83605; 83615; 83735; 83880; 84100; 84145; 84443; 84484; 85025; 85379; 86705; 86709; 86803; 87340; 87426; 87804; 93005; 93970; 94640; 94660; 99291; C9803; J0885; J1650; J1815; J1940; J2270; J2543; J3370; J3490; J7060; G0480

== ENCOUNTER 2022-05-27 01:29 | Emergency (ER) | payer OTHER, MEDICAID ==
[~2022-05-27] VITALS: Ht 167.6 cm; Wt 101.0 kg
[2022-05-27 02:24] LABS: BASOPHILS % 0.3 % (0.0-2.0); HEMOGLOBIN. 11.7 g/dL (12.0-16.0); LYMPHOCYTES % 10.4 % (20.0-50.0); MEAN CORPUSCULAR HEMOGLOBIN 31.6 pg (28.0-32.0); MEAN CORPUSCULAR VOLUME 97.4 fL (81.0-99.0); MEAN PLATELET VOLUME 10.2 fl (7.4-10.4); NEUTROPHILS % 82.3 % (40.0-76.0); PLATELET 109 x1000/uL (130-400); RED BLOOD CELL COUNT 3.69 mill/uL (4.2-5.4); RED CELL DISTRIBUTION WIDTH 15.6 % (11.6-14.6)
[2022-05-27 02:28] VITALS: BP 166/94
[2022-05-27 02:29] LABS: CHLORIDE 100 mEq/L (98-107)
== END 2022-05-27 04:25 | disposition home or self-care (01) ==
LOC: ER 01:31
DX: E11.22 Type 2 diabetes mellitus with diabetic chronic kidney disease (principal); I12.0 Hypertensive chronic kidney disease with stage 5 chronic kidney disease or end stage renal disease; N18.6 End stage renal disease; E87.70 Fluid overload, unspecified; Z98.890 Other specified postprocedural states
CPT/HCPCS: 36415; 71045; 80053; 83880; 84484; 85025; 93005; 99285

== ENCOUNTER 2022-10-01 10:48 | Emergency (ER) | payer OTHER, MEDICAID ==
[~2022-10-01] VITALS: Ht 172.7 cm; Wt 118.0 kg
[2022-10-01] MEDS ORDERED: ONDANSETRON HCL 4MG/2ML INJ IV STA (10:52)
[2022-10-01 11:18] LABS: HEMATOCRIT. 34.8 % (36.0-48.0); HEMOGLOBIN. 11.4 g/dL (12.0-16.0); MEAN CORPUSCULAR HEMOGLOBIN 31.9 pg (28.0-32.0); MEAN CORPUSCULAR VOLUME 97.2 fL (81.0-99.0); MEAN PLATELET VOLUME 10.4 fl (7.4-10.4); PLATELET 110 x1000/uL (130-400); RED BLOOD CELL COUNT 3.58 mill/uL (4.2-5.4); RED CELL DISTRIBUTION WIDTH 15.9 % (11.6-14.6)
[2022-10-01 11:22] LABS: CHLORIDE 106 mEq/L (98-107)
[2022-10-01 12:00] LABS: NUCLEATED RED BLOOD CELLS 10 /100 WBC
[2022-10-01 12:11] LABS: PLATELET ESTIMATE DECREASED
[2022-10-01] MEDS ORDERED: ACETAMINOPHEN 325MG TABLET PO ONE (14:30)
[2022-10-01 15:30] VITALS: BP 136/60
== END 2022-10-01 15:29 | disposition short-term general hospital (02) ==
LOC: ER 10:48 → CANBEDREQ 10-02 20:44
DX: E11.22 Type 2 diabetes mellitus with diabetic chronic kidney disease (principal); I12.9 Hypertensive chronic kidney disease with stage 1 through stage 4 chronic kidney disease, or unspecified chronic kidney disease; N18.9 Chronic kidney disease, unspecified; E87.70 Fluid overload, unspecified; Z20.822 Contact with and (suspected) exposure to COVID-19; Z98.890 Other specified postprocedural states; Z88.6 Allergy status to analgesic agent; Z88.1 Allergy status to other antibiotic agents
CPT/HCPCS: 36415; 71045; 80053; 84484; 85025; 87426; 93005; 96374; 99285; C9803; J2405

== ENCOUNTER 2023-11-20 12:50 | Inpatient (IN) | payer OTHER, MEDICAID, MEDICARE ==
[~2023-11-20] VITALS: Ht 167.6 cm; Wt 108.0 kg
[2023-11-20] MEDS ORDERED: ALBUTEROL (0.083%) 2.5MG/3ML NEB HHN STA (12:54)
[2023-11-20] MEDS ORDERED: IPRATROPIUM BROMIDE (0.02%) 0.5MG/2.5ML NEB HHN STA (12:54)
[2023-11-20 13:28] LABS: HEMATOCRIT. 30.7 % (36.0-48.0); HEMOGLOBIN. 10.3 g/dL (12.0-16.0); MEAN CORPUSCULAR HEMOGLOBIN 31.9 pg (28.0-32.0); MEAN CORPUSCULAR HGB CONC 33.4 g/dL (31.0-37.0); MEAN CORPUSCULAR VOLUME 95.4 fL (81.0-99.0); MEAN PLATELET VOLUME 9.6 fl (7.4-10.4); PLATELET 137 x1000/uL (130-400); RED BLOOD CELL COUNT 3.21 mill/uL (4.2-5.4); RED CELL DISTRIBUTION WIDTH 15.1 % (11.6-14.6)
[2023-11-20 13:30] LABS: DIFFERENTIAL COMMENT 1
[2023-11-20 13:33] LABS: POTASSIUM 5.5 mEq/L (3.5-5.1)
[2023-11-20 13:35] LABS: CALCIUM 9.1 mg/dL (8.7-10.4)
[2023-11-20 13:38] LABS: PROTHROMBIN TIME 11.3 sec (9.6-11.0)
[2023-11-20] MEDS: METHYLPREDNISOLONE SOD SUCC 125MG/2ML (ACT-O-VIAL) IV STA (13:40)
[2023-11-20] MEDS: MAGNESIUM 2 G PREMIX 50 ML IV ONE (13:41)
[2023-11-20 13:42] LABS: CREATININE 9.3 mg/dL (0.6-1.0)
[2023-11-20 13:56] LABS: BG BASE EXCESS 7.3 mmol/L (-2.0-2.0); BG CARBOXYHEMOGLOBIN 1.2 % (0.5-1.5); BG FRACTION INSPIRED OXYGEN 21; BG HCO3 ACT 30.8 mmol/L (22.0-26.0); BG METHEMOGLOBIN 0.3 % (0.0-1.5); BG OXYGEN SATURATION 86.8 % (92.0-98.5); BG OXYHEMOGLOBIN 85.5 % (94.0-97.0); BG PCO2 39.1 mmHg (35.0-45.0); BG PH 7.514 (7.350-7.450); BG PO2 47.6 mmHg (75.0-100.0); BG SAMPLE SITE RIGHT BRACHIAL; BG TOTAL HEMOGLOBIN 10.8 g/dL (12.0-18.0); BG VENT MODE ROOM AIR
[2023-11-20] MEDS: NITROGLYCERIN 0.4MG/HR PATCH TOP NR (15:00)
[2023-11-20 15:32] LABS: ANISOCYTOSIS 1+; PLATELET ESTIMATE NORMAL
[2023-11-20] MEDS: SODIUM POLYSTYRENE SULFONATE 15 G/60 ML BOT PO NR (15:36)
[2023-11-20] MEDS: FUROSEMIDE 40MG/4ML VIAL IVP NR (15:36)
[2023-11-20 16:40] VITALS: PULSE 98; RESP 20; O2SAT 99
[2023-11-20] MEDS: IPRATROPIUM BROMIDE (0.02%) 0.5MG/2.5ML NEB HHN NR (16:48)
[2023-11-20] MEDS: ALBUTEROL (0.083%) 2.5MG/3ML NEB HHN NR (16:49)
[2023-11-20 19:51] LABS: TROPONIN I HIGH SENSITIVITY 249 ng/L (3.0-34)
[2023-11-20] MEDS: BLOOD SUGAR DIAGNOSTIC STRIP TEST SCH (21:00)
[2023-11-20] MEDS ORDERED: DEXTROSE 50% WATER 50ML SYRINGE IV PRN (21:00)
[2023-11-20] MEDS ORDERED: ACETAMINOPHEN 325MG TABLET PO PRN (21:00)
[2023-11-20] MEDS ORDERED: ONDANSETRON HCL 4MG/2ML INJ IV PRN (21:00)
[2023-11-20] MEDS: ACETAMINOPHEN 325MG TABLET PO PRN (21:44)
[2023-11-20] MEDS: GUAIFENESIN 200MG/10ML SUGAR FREE UDC PO PRN (21:44)
[2023-11-20] MEDS: METHYLPREDNISOLONE SOD SUCC 40MG/ML (ACT-O-VIAL) IV SCH (23:15)
[2023-11-21] VITALS (13 sets, daily range): BP systolic 138–162; BP diastolic 75–99; PULSE 98–111; RESP 17–22; TEMP 97.7–98.6; O2SAT 95
[2023-11-21] MEDS: INSULIN LISPRO 100 UNITS/ML SUBCUT SCH (00:51)
[2023-11-21 01:29] LABS: IRON 26 ug/dL (50-170)
[2023-11-21 01:30] LABS: LDL CHOLESTEROL 59 mg/dL (5-100); TRIGLYCERIDE 75 mg/dL (0-150)
[2023-11-21 01:31] LABS: CHOLESTEROL 120 mg/dL (<200); CREATINE KINASE MB FRACTION 3.5 ng/mL (0.5-3.6); HDL CHOLESTEROL 43 mg/dL (>65)
[2023-11-21 01:32] LABS: PHOSPHORUS 5.7 mg/dL (2.5-4.9); TOTAL IRON BINDING CAPACITY 250 ug/dl (250-425)
[2023-11-21 01:34] LABS: FERRITIN > 1650 ng/mL (10-291); FOLIC ACID (FOLATE) SERUM 6.47 ng/mL (>5.38); VITAMIN B12 SERUM 792 pg/mL (211-911)
[2023-11-21 07:03] LABS: HEMATOCRIT 29.5 % (36.0-48.0); HEMOGLOBIN 9.7 g/dL (12.0-16.0); MEAN CORPUSCULAR HEMOGLOBIN 31.4 pg (28.0-32.0); MEAN CORPUSCULAR HGB CONC 32.7 g/dL (31.0-37.0); MEAN CORPUSCULAR VOLUME 95.9 fL (81.0-99.0); PLATELET 128 x1000/uL (130-400); RED BLOOD CELL COUNT 3.08 mill/uL (4.2-5.4); RED CELL DISTRIBUTION WIDTH 15.2 % (11.6-14.6); WHITE BLOOD COUNT 7.4 x1000/uL (4.5-11.0)
[2023-11-21 07:07] LABS: POTASSIUM 5.1 mEq/L (3.5-5.1)
[2023-11-21 07:09] LABS: CALCIUM 9.4 mg/dL (8.7-10.4)
[2023-11-21 07:14] LABS: CREATINE KINASE MB FRACTION 4.3 ng/mL (0.5-3.6)
[2023-11-21 08:14] LABS: CREATININE 10.5 mg/dL (0.6-1.0)
[2023-11-21 08:57] LABS: BG BASE EXCESS 2.9 mmol/L (-2.0-2.0); BG CARBOXYHEMOGLOBIN 0.7 % (0.5-1.5); BG DEOXYHEMOGLOBIN 2.3 % (0.0-5.0); BG FRACTION INSPIRED OXYGEN 32; BG HCO3 ACT 27.2 mmol/L (22.0-26.0); BG METHEMOGLOBIN 0.3 % (0.0-1.5); BG OXYGEN SATURATION 97.7 % (92.0-98.5); BG OXYHEMOGLOBIN 96.7 % (94.0-97.0); BG PCO2 40.3 mmHg (35.0-45.0); BG PH 7.447 (7.350-7.450); BG PO2 96.5 mmHg (75.0-100.0); BG SAMPLE SITE LEFT BRACHIAL; BG TOTAL HEMOGLOBIN 10.3 g/dL (12.0-18.0); BG VENT MODE NASAL CANNULA
[2023-11-21 11:41] LABS: HEPATITIS B SURFACE ANTIGEN NEGATIVE (Negative)
[2023-11-21 12:01] LABS: HEPATITIS A AB IGM NEGATIVE (Negative)
[2023-11-21 12:02] LABS: HEPATITIS B CORE AB IGM NEGATIVE (Negative); HEPATITIS C AB NON REACTIVE (Neg) (Negative)
[2023-11-21] MEDS ORDERED: ASPI-1497 PO (13:33)
[2023-11-21] MEDS ORDERED: BUPR-114 PO (13:35)
[2023-11-21] MEDS ORDERED: CARV6.2548 PO (13:35)
[2023-11-21] MEDS ORDERED: CETI10TA11 PO (13:36)
[2023-11-21] MEDS ORDERED: CYCL5TAB PO (13:36)
[2023-11-21] MEDS ORDERED: FLUO15CR2 TP (13:37)
[2023-11-21] MEDS ORDERED: HC A30CR11 RC (13:39)
[2023-11-21] MEDS ORDERED: ISOS30TA91 MT (13:40)
[2023-11-21] MEDS ORDERED: LIDO700A30 TP (13:41)
[2023-11-21] MEDS ORDERED: MUPI15CR11 TP (13:42)
[2023-11-21] MEDS ORDERED: MECL-264 (13:42)
[2023-11-21] MEDS ORDERED: FLUT1BLS9 IH (13:42)
[2023-11-21] MEDS ORDERED: ATOR-2 PO (13:43)
[2023-11-21] MEDS ORDERED: GABA-529 PO (13:44)
[2023-11-21] MEDS ORDERED: HYDR200T35 PO (13:44)
[2023-11-21] MEDS ORDERED: OMEP20CA14 PO (13:45)
[2023-11-21] MEDS: IPRATROPIUM/ALBUTEROL 0.5-3(2.5)MG/3ML NEB HHN PRN (14:50)
[2023-11-21] MEDS: FLUTICASONE/VILANTEROL 200-25 BLST.W.DEV ORI SCH (20:58)
[2023-11-21] MEDS: CLONIDINE 0.1MG TABLET PO PRN (20:58)
[2023-11-21] MEDS: ALBUTEROL 6.7GM HFA INHALER ORI PRN (20:58)
[2023-11-21] MEDS: CARVEDILOL 6.25 MG TABLET PO SCH (20:58)
[2023-11-21] MEDS: ATORVASTATIN CALCIUM 40MG TABLET PO SCH (20:59)
[2023-11-21] MEDS ORDERED: NON FORMULARY PATIENT HOME MED XX SCH (23:15)
[2023-11-21] MEDS: POLYVINYL ALCOHOL OPHTH DROPS 15ML EACHEYE PRN (23:28)
[2023-11-22] VITALS: BP 137/76; PULSE 95; RESP 18; TEMP 98.8
[2023-11-22 04:00] VITALS: BP 117/78; PULSE 98; RESP 19; TEMP 97.6
[2023-11-22] MEDS: OMEPRAZOLE 20MG CAPSULE EXTENDED RELEASE PO SCH (06:40)
[2023-11-22 07:35] LABS: HEMATOCRIT 28.2 % (36.0-48.0); HEMOGLOBIN 9.2 g/dL (12.0-16.0); MEAN CORPUSCULAR HEMOGLOBIN 31.3 pg (28.0-32.0); MEAN CORPUSCULAR HGB CONC 32.5 g/dL (31.0-37.0); MEAN CORPUSCULAR VOLUME 96.1 fL (81.0-99.0); PLATELET 133 x1000/uL (130-400); RED BLOOD CELL COUNT 2.94 mill/uL (4.2-5.4); RED CELL DISTRIBUTION WIDTH 15.1 % (11.6-14.6); WHITE BLOOD COUNT 9.5 x1000/uL (4.5-11.0)
[2023-11-22 07:48] LABS: POTASSIUM 5.1 mEq/L (3.5-5.1)
[2023-11-22 07:49] LABS: CALCIUM 9.1 mg/dL (8.7-10.4)
[2023-11-22 08:00] VITALS: BP 163/91; PULSE 98; RESP 22; TEMP 98.8
[2023-11-22 08:02] LABS: CREATININE 9.3 mg/dL (0.6-1.0)
[2023-11-22] MEDS: ASPIRIN 81MG EC TABLET PO SCH (09:52)
[2023-11-22] MEDS: ISOSORBIDE MONONITRATE 30MG TABLET SR 24HR PO SCH (09:53)
[2023-11-22 12:00] VITALS: BP 150/79; PULSE 98; RESP 18; TEMP 97
[2023-11-22 16:00] VITALS: BP 166/89; PULSE 94; RESP 20; TEMP 98.6
[2023-11-22 18:24] VITALS: BP 166/86; PULSE 94; TEMP 98.1; O2SAT 99
== END 2023-11-22 19:00 | disposition short-term general hospital (02) | DRG 177 ==
LOC: ER 12:50 → 5WST 18:06 → EDBEDREQ 18:13 → EDBEDREQTM 18:13 → 7WST 11-21 10:53 → 7EST 11-21 12:45
PROVIDERS: ADMIT Hospitalist; ATTEND Hospitalist
PROC: 5A1D70Z Performance of Urinary Filtration, Intermittent, Less than 6 Hours Per Day (ICD-10-PCS; principal; 2023-11-21)
DX: U07.1 COVID-19 (principal); I21.A1 Myocardial infarction type 2; J12.82 Pneumonia due to coronavirus disease 2019; N18.6 End stage renal disease; I13.2 Hypertensive heart and chronic kidney disease with heart failure and with stage 5 chronic kidney disease, or end stage renal disease; J44.1 Chronic obstructive pulmonary disease with (acute) exacerbation; J44.0 Chronic obstructive pulmonary disease with (acute) lower respiratory infection; N17.9 Acute kidney failure, unspecified; E11.22 Type 2 diabetes mellitus with diabetic chronic kidney disease; E66.01 Morbid (severe) obesity due to excess calories; Z68.38 Body mass index [BMI] 38.0-38.9, adult; E87.5 Hyperkalemia; Z99.2 Dependence on renal dialysis; I50.9 Heart failure, unspecified; Z79.4 Long term (current) use of insulin; Z82.49 Family history of ischemic heart disease and other diseases of the circulatory system; Z83.3 Family history of diabetes mellitus; Z88.3 Allergy status to other anti-infective agents; D64.9 Anemia, unspecified
CPT/HCPCS: 36415; 36600; 71045; 80048; 80061; 82040; 82375; 82553; 82607; 82728; 82746; 82805; 82962; 83036; 83540; 83550; 83735; 83880; 84100; 84484; 85025; 85027; 86705; 86709; 87340; 87426; 90935; 93005; 94640; 94644; 99291; J1815; J1940; J2919; J2920; J3475

== ENCOUNTER 2024-11-23 14:10 | Emergency (ER) | payer OTHER, MEDICAID ==
[~2024-11-23] VITALS: Ht 172.7 cm; Wt 80.0 kg
[~2024-11-23 14:10] MED LIST changes: -AMLO10TA4 PO; +ASPI-1497 PO; +BUPR-114 PO; -CARV12.545 PO; +CARV6.2548 PO; +CETI10TA11 PO; -CYCL10TA21 PO; +CYCL5TAB3 PO; +FLUO15CR2 TP; +FLUT1BLS9 IH; -FURO40TA5 PO; +HC A30CR11 RC; +HYDR200T35 PO; +ISOS30TA91 MT; +LIDO700A30 TP; -LOSA100T32 PO; -MECL-217 PO; +MECL-264; -MONT-39 PO; +MUPI15CR11 TP; +OMEP20CA14 PO; -OMEP20TA23 PO; -PRED5TAB PO; -REN800 PO; -SERT25TA74 PO; -TRAM50TA3 PO
[2024-11-23 14:16] VITALS: BP 130/69; PULSE 72; RESP 16; TEMP 36.8; O2SAT 100
[2024-11-23] MEDS: SODIUM CHLORIDE 0.9% 1,000 ML IV ONE (15:30)
[2024-11-23 15:51] LABS: BASOPHILS % 1.2 % (0.0-2.0); EOSINOPHILS % 6.8 % (0.0-5.0); HEMATOCRIT. 37.9 % (36.0-48.0); HEMOGLOBIN. 12.3 g/dL (12.0-16.0); LYMPHOCYTES % 23.7 % (20.0-50.0); MEAN PLATELET VOLUME 10.8 fl (7.4-10.4); MONOCYTES % 9.2 % (2.0-8.0); NEUTROPHILS % 59.1 % (40.0-76.0); PLATELET 88 x1000/uL (130-400); RED BLOOD CELL COUNT 3.89 mill/uL (4.2-5.4); RED CELL DISTRIBUTION WIDTH 16.7 % (11.6-14.6)
[2024-11-23 16:02] LABS: TROPONIN I HIGH SENSITIVITY 23 ng/L (3.0-34); UREA NITROGEN BLOOD 28 mg/dL (9-23)
[2024-11-23 16:04] LABS: ASPARTATE AMINOTRANSFERASE 20 IU/L (<34); BILIRUBIN DIRECT < 0.1 mg/dL (<=3.0); BILIRUBIN TOTAL 0.2 mg/dL (0.1-1.0); PROTEIN TOTAL 7.2 g/dL (6.0-8.3)
[2024-11-23 16:10] LABS: CREATININE 6.1 mg/dL (0.6-1.0)
== END 2024-11-23 16:41 | disposition left against medical advice (07) ==
LOC: ER 14:10 → CMPBEDREQ 11-24 19:22
DX: I50.9 Heart failure, unspecified (principal); E11.22 Type 2 diabetes mellitus with diabetic chronic kidney disease; I13.2 Hypertensive heart and chronic kidney disease with heart failure and with stage 5 chronic kidney disease, or end stage renal disease; N18.6 End stage renal disease; J44.9 Chronic obstructive pulmonary disease, unspecified; E78.5 Hyperlipidemia, unspecified; Z79.899 Other long term (current) drug therapy; Z88.1 Allergy status to other antibiotic agents; Z88.6 Allergy status to analgesic agent; Z99.2 Dependence on renal dialysis
CPT/HCPCS: 99284; 80076; 80048; 83880; 85025; 84484; 36415; 93005; J7030